=== PATIENT | female | born 1945 | race Caucasian/White ===

== ENCOUNTER 2021-11-13 14:55 | Inpatient (IN) | payer MEDICARE, OTHER ==
[~2021-11-13 14:55] MED LIST: Iopamidol-370 76% 500 ML 1 ML ONE
[2021-11-13 15:25] LABS: #Lymphocytes 1.7 thou/uL (1.20-3.40); #Monocytes 0.9 thou/uL (0.11-0.59); #Neutrophils 11.5 thou/uL (1.40-6.50); %Basophils 0.1 % (0.0-1.0); %Eosinophils 0.1 % (0.0-10.0); %Lymphocytes 12.2 % (21.0-51.0); %Monocytes 6.3 % (0.0-10.0); %Neutrophils 81.3 % (42.0-75.0); Hemoglobin 14.4 g/dL (12.0-16.0); Mean Corpuscular HGB CONC 33.5 g/dL (32.0-36.0); Mean Corpuscular Hemoglobin 29.6 pg (27.0-31.0); Mean Corpuscular Volume 88.4 fL (78.0-98.0); Mean Platelet Volume 7.5 fL (7.4-10.4); Platelet Count 310 thou/uL (130-400); RBC Distribution Width 12.3 % (11.5-14.5); Red Blood Cell (RBC) Count 4.88 mill/uL (4.20-5.40); White Blood Cell (WBC) Count 14.1 thou/uL (4.8-10.8)
[2021-11-13 16:01] LABS: ALT (SGPT) 29 U/L (8-55); AST (SGOT) 47 U/L (5-34); Albumin 4.6 g/dL (3.4-4.8); Alkaline Phosphatase 164 U/L (40-110); Anion Gap 23 mmol/L (10-20); BUN (Urea Nitrogen) 41 mg/dL (9.8-20.1); Bilirubin, Total 1.1 mg/dL (0.2-1.2); Calc. Creatinine Clearance 0 mL/min (70-130); Calcium 9.6 mg/dL (7.8-10.44); Carbon Dioxide 18 mmol/L (23-31); Chloride 99 mmol/L (98-107); Estimated GFR 33; Globulin 3.9 g/dL (2.4-3.5); Glucose 131 mg/dL (83-110); Lipase 8 U/L (8-78); Potassium 4.7 mmol/L (3.5-5.1); Protein, Total 8.5 g/dL (5.8-8.1); Sodium 135 mmol/L (136-145)
[2021-11-13 16:13] LABS: Bilirubin Negative (Negative); Blood, Urine 1+ (Negative); Clarity Turbid (Clear); Glucose, Urine (Dipstick) Normal (Negative); Ketone, Urine Negative (Negative); Leukocyte 250 Leu/uL (Negative); Nitrite 2+ (Negative); Protein, Urine (Dipstick) 100 mg/dL (Neg-Trace); Specific Gravity, Urine 1.017 (1.002-1.036); Squamous Epithelial 0-3 HPF (0-3); Urobilinogen Normal mg/dL (Less than 2); WBC/HPF 21-50 HPF (0-3); pH, Urine 5.5 (5.0-9.0)
[2021-11-13 16:14] LABS: Bacteria/HPF 1+ HPF (None Seen)
[2021-11-13] MEDS ORDERED: Ondansetron PF 4 MG/2 ML Vial ONE (16:27)
[2021-11-13] MEDS ORDERED: Morphine 4 MG/ML VIAL ONE ×2 (16:27→19:01)
[2021-11-13] MEDS ORDERED: Vancomycin 1 GM/200 ML BAG ONE (16:27)
[2021-11-13] MEDS ORDERED: Cefepime 2 GM VIAL ONE (16:27)
[2021-11-13] MEDS ORDERED: Acetaminophen 500 MG TAB ONE (16:41)
[2021-11-13] MEDS ORDERED: Ondansetron ODT 4 MG TAB PO PRN (18:44)
[2021-11-13] MEDS ORDERED: Bisacodyl 5 MG TAB PO PRN (18:44)
[2021-11-13] MEDS ORDERED: Senokot S 8.6-50 MG TAB PO PRN (18:44)
[2021-11-13] MEDS ORDERED: Acetaminophen 325 MG TAB PO PRN (18:44)
[2021-11-13] MEDS ORDERED: Acetaminophen 650 MG Suppository PR PRN (18:44)
[2021-11-13] MEDS ORDERED: diphenhydrAMINE 25 MG CAP PO SCH (19:00)
[2021-11-13 19:02] LABS: Lactic Acid 1.2 mmol/L (0.5-2.2)
[2021-11-13 20:20] VITALS: BMI 23.9
[2021-11-13] MEDS: Sodium Chloride 0.9% 1,000 ML IV SCH (21:32)
[2021-11-13] MEDS ORDERED: Cefepime 2 GM in Sodium Chloride 0.9% 100 ML IVPB SCH (22:00)
[2021-11-14] MEDS ORDERED: Chloraseptic Spray 180 ml Bottle PO PRN (01:42)
[2021-11-14] MEDS: HYDROcodone/Acetaminophen 5/325 mg Tablet PO PRN ×4 (03:12→23:50)
[2021-11-14] MEDS: Sodium Chloride 0.9% 1,000 ML IV SCH ×4 (03:21→22:17)
[2021-11-14] MEDS ORDERED: Cefepime 1 GM in Sodium Chloride 0.9% 100 ML IVPB SCH (04:00)
[2021-11-14 04:49] LABS: Troponin I 0.015 ng/mL (< 0.028)
[2021-11-14 04:55] LABS: ALT (SGPT) 27 U/L (8-55); AST (SGOT) 42 U/L (5-34); Albumin 3.2 g/dL (3.4-4.8); Alkaline Phosphatase 125 U/L (40-110); Anion Gap 13 mmol/L (10-20); BUN (Urea Nitrogen) 33 mg/dL (9.8-20.1); Bilirubin, Total 0.5 mg/dL (0.2-1.2); Calc. Creatinine Clearance 40 mL/min (70-130); Calcium 8.3 mg/dL (7.8-10.44); Carbon Dioxide 22 mmol/L (23-31); Chloride 106 mmol/L (98-107); Estimated GFR 43; Globulin 2.6 g/dL (2.4-3.5); Glucose 150 mg/dL (83-110); Potassium 3.3 mmol/L (3.5-5.1); Protein, Total 5.8 g/dL (5.8-8.1); Sodium 138 mmol/L (136-145)
[2021-11-14] MEDS: Enoxaparin Sodium 30 MG/0.3 ML SYRINGE SC SCH (08:20)
[2021-11-14] MEDS ORDERED: Potassium Chloride 20 MEQ TAB PO SCH (09:45)
[2021-11-14] MEDS: cefTRIAXone\\ROCEPHIN 1 GM in Sodium Chloride 0.9% 100 ML IVPB SCH (10:20)
[2021-11-14 10:53] LABS: #Eosinphils 0.2 thou/uL (0.0-0.7); #Lymphocytes 1.1 thou/uL (1.20-3.40); #Monocytes 0.4 thou/uL (0.11-0.59); #Neutrophils 5.7 thou/uL (1.40-6.50); %Basophils 0.1 % (0.0-1.0); %Eosinophils 2.1 % (0.0-10.0); %Lymphocytes 14.7 % (21.0-51.0); %Monocytes 5.8 % (0.0-10.0); %Neutrophils 77.3 % (42.0-75.0); Hemoglobin 12.3 g/dL (12.0-16.0); Mean Corpuscular Hemoglobin 28.9 pg (27.0-31.0); Mean Corpuscular Volume 90.3 fL (78.0-98.0); Mean Platelet Volume 7.5 fL (7.4-10.4); Platelet Count 222 thou/uL (130-400); Red Blood Cell (RBC) Count 4.27 mill/uL (4.20-5.40); White Blood Cell (WBC) Count 7.4 thou/uL (4.8-10.8)
[2021-11-14] MEDS: Ondansetron PF 4 MG/2 ML Vial IVP PRN (16:52)
[2021-11-14] MEDS: diphenhydrAMINE 12.5 MG/5 ML UDCUP PO PRN ×2 (16:55→23:55)
[2021-11-14] MEDS ORDERED: Vancomycin HCl 1 GM in Sodium Chloride 0.9% 250 ML 300 ML IVPB SCH (17:00)
[2021-11-15 04:16] LABS: #Basophils 0.1 thou/uL (0.0-0.2); #Eosinphils 0.3 thou/uL (0.0-0.7); #Lymphocytes 1.7 thou/uL (1.20-3.40); #Monocytes 0.4 thou/uL (0.11-0.59); %Basophils 0.7 % (0.0-1.0); %Eosinophils 3.3 % (0.0-10.0); %Monocytes 5.1 % (0.0-10.0); %Neutrophils 70.9 % (42.0-75.0); Hemoglobin 11.5 g/dL (12.0-16.0); Mean Corpuscular HGB CONC 32.8 g/dL (32.0-36.0); Mean Corpuscular Hemoglobin 29.5 pg (27.0-31.0); Mean Corpuscular Volume 90.1 fL (78.0-98.0); Mean Platelet Volume 7.7 fL (7.4-10.4); Platelet Count 236 thou/uL (130-400); RBC Distribution Width 12.2 % (11.5-14.5); White Blood Cell (WBC) Count 8.5 thou/uL (4.8-10.8)
[2021-11-15 04:39] LABS: Anion Gap 13 mmol/L (10-20); BUN (Urea Nitrogen) 28 mg/dL (9.8-20.1); Calc. Creatinine Clearance 50 mL/min (70-130); Calcium 8.5 mg/dL (7.8-10.44); Carbon Dioxide 21 mmol/L (23-31); Chloride 111 mmol/L (98-107); Estimated GFR 56; Glucose 131 mg/dL (83-110); Potassium 3.8 mmol/L (3.5-5.1); Sodium 141 mmol/L (136-145)
[2021-11-15] MEDS: HYDROcodone/Acetaminophen 5/325 mg Tablet PO PRN ×4 (05:08→21:20)
[2021-11-15] MEDS: Sodium Chloride 0.9% 1,000 ML IV SCH ×3 (05:08→13:43)
[2021-11-15] MEDS ORDERED: Non-Formulary Item 1 EACH (Cholecalciferol (Vitamin D3) [Vitamin D] 1000 UNIT Capsule) PO SCH (09:00)
[2021-11-15] MEDS ORDERED: Buprenorphine Hcl [Belbuca] 600 MCG Film SL SCH (09:00)
[2021-11-15] MEDS ORDERED: tiZANidine HCl 4 MG TAB PO SCH (09:00)
[2021-11-15] MEDS ORDERED: BUPRENORPHINE HCL 600 MCG SL SCH (09:00)
[2021-11-15] MEDS: tiZANidine HCl 4 MG TAB PO SCH (09:39)
[2021-11-15] MEDS: cefTRIAXone\\ROCEPHIN 1 GM in Sodium Chloride 0.9% 100 ML IVPB SCH (09:39)
[2021-11-15] MEDS: Cholecalciferol 1,000 UNITS (25 MCG) TAB PO SCH (09:39)
[2021-11-15] MEDS: Enoxaparin Sodium 30 MG/0.3 ML SYRINGE SC SCH (09:39)
[2021-11-15] MEDS: Ferrous Sulfate 325 MG TAB PO SCH ×2 (09:39→21:20)
[2021-11-15] MEDS ORDERED: diphenhydrAMINE 12.5 MG/5 ML UDCUP PO SCH (10:00)
[2021-11-15] MEDS: diphenhydrAMINE 12.5 MG/5 ML UDCUP PO SCH ×2 (13:33→21:20)
[2021-11-15] MEDS ORDERED: Non-Formulary Item 1 EACH (Pregabalin [Lyrica] 150 MG Capsule) PO SCH (21:00)
[2021-11-15] MEDS: Pregabalin 75 MG CAP PO SCH (21:19)
[2021-11-16] MEDS: Sodium Chloride 0.9% 1,000 ML IV SCH ×2 (02:26→16:55)
[2021-11-16] MEDS ORDERED: Calamine/Zinc Oxide 177 ML LOTION TP SCH (03:00)
[2021-11-16 04:06] LABS: #Eosinphils 0.4 thou/uL (0.0-0.7); #Monocytes 0.4 thou/uL (0.11-0.59); #Neutrophils 6.6 thou/uL (1.40-6.50); %Basophils 0.1 % (0.0-1.0); %Eosinophils 3.4 % (0.0-10.0); %Lymphocytes 28.5 % (21.0-51.0); %Monocytes 4.3 % (0.0-10.0); %Neutrophils 63.7 % (42.0-75.0); Hemoglobin 10.7 g/dL (12.0-16.0); Mean Corpuscular HGB CONC 32.6 g/dL (32.0-36.0); Mean Corpuscular Hemoglobin 28.8 pg (27.0-31.0); Mean Corpuscular Volume 88.4 fL (78.0-98.0); Mean Platelet Volume 7.3 fL (7.4-10.4); Platelet Count 241 thou/uL (130-400); RBC Distribution Width 12.2 % (11.5-14.5); Red Blood Cell (RBC) Count 3.73 mill/uL (4.20-5.40); White Blood Cell (WBC) Count 10.4 thou/uL (4.8-10.8)
[2021-11-16 04:24] LABS: Anion Gap 9 mmol/L (10-20); BUN (Urea Nitrogen) 21 mg/dL (9.8-20.1); Calc. Creatinine Clearance 57 mL/min (70-130); Calcium 8.4 mg/dL (7.8-10.44); Carbon Dioxide 23 mmol/L (23-31); Chloride 112 mmol/L (98-107); Estimated GFR 67; Glucose 106 mg/dL (83-110); Potassium 3.3 mmol/L (3.5-5.1); Sodium 141 mmol/L (136-145)
[2021-11-16] MEDS: HYDROcodone/Acetaminophen 5/325 mg Tablet PO PRN ×3 (04:50→21:58)
[2021-11-16] MEDS: diphenhydrAMINE 12.5 MG/5 ML UDCUP PO SCH ×3 (06:29→21:58)
[2021-11-16] MEDS: Cholecalciferol 1,000 UNITS (25 MCG) TAB PO SCH (08:35)
[2021-11-16] MEDS: Enoxaparin Sodium 30 MG/0.3 ML SYRINGE SC SCH (08:35)
[2021-11-16] MEDS: tiZANidine HCl 4 MG TAB PO SCH (08:35)
[2021-11-16] MEDS: Ferrous Sulfate 325 MG TAB PO SCH ×2 (08:35→21:57)
[2021-11-16] MEDS: cefTRIAXone\\ROCEPHIN 1 GM in Sodium Chloride 0.9% 100 ML IVPB SCH (08:37)
[2021-11-16] MEDS: Calamine/Zinc Oxide 177 ML LOTION TP SCH ×2 (09:12→22:00)
[2021-11-16] MEDS: Ondansetron PF 4 MG/2 ML Vial IVP PRN (16:54)
[2021-11-16] MEDS: Pregabalin 75 MG CAP PO SCH (21:56)
[2021-11-17 04:25] LABS: #Eosinphils 0.2 thou/uL (0.0-0.7); #Monocytes 0.5 thou/uL (0.11-0.59); #Neutrophils 6.5 thou/uL (1.40-6.50); %Basophils 0.1 % (0.0-1.0); %Eosinophils 1.7 % (0.0-10.0); %Lymphocytes 29.4 % (21.0-51.0); %Monocytes 4.7 % (0.0-10.0); Hemoglobin 10.1 g/dL (12.0-16.0); Mean Corpuscular HGB CONC 33.1 g/dL (32.0-36.0); Mean Corpuscular Volume 87.7 fL (78.0-98.0); Mean Platelet Volume 7.4 fL (7.4-10.4); Platelet Count 241 thou/uL (130-400); RBC Distribution Width 12.3 % (11.5-14.5); Red Blood Cell (RBC) Count 3.47 mill/uL (4.20-5.40); White Blood Cell (WBC) Count 10.1 thou/uL (4.8-10.8)
[2021-11-17 04:42] LABS: Anion Gap 11 mmol/L (10-20); BUN (Urea Nitrogen) 13 mg/dL (9.8-20.1); Calc. Creatinine Clearance 65 mL/min (70-130); Calcium 8.4 mg/dL (7.8-10.44); Carbon Dioxide 22 mmol/L (23-31); Chloride 111 mmol/L (98-107); Estimated GFR 78; Glucose 113 mg/dL (83-110); Sodium 141 mmol/L (136-145)
[2021-11-17] MEDS: diphenhydrAMINE 12.5 MG/5 ML UDCUP PO SCH ×2 (06:15→13:22)
[2021-11-17] MEDS: Sodium Chloride 0.9% 1,000 ML IV SCH (06:15)
[2021-11-17] MEDS: HYDROcodone/Acetaminophen 5/325 mg Tablet PO PRN (06:22)
[2021-11-17] MEDS: Enoxaparin Sodium 30 MG/0.3 ML SYRINGE SC SCH (09:13)
[2021-11-17] MEDS: Ferrous Sulfate 325 MG TAB PO SCH (09:14)
[2021-11-17] MEDS: tiZANidine HCl 4 MG TAB PO SCH (09:14)
[2021-11-17] MEDS: Cholecalciferol 1,000 UNITS (25 MCG) TAB PO SCH (09:14)
[2021-11-17] MEDS: cefTRIAXone\\ROCEPHIN 1 GM in Sodium Chloride 0.9% 100 ML IVPB SCH (09:16)
[2021-11-17] MEDS: Calamine/Zinc Oxide 177 ML LOTION TP SCH (09:23)
[2021-11-17] MEDS ORDERED: Potassium Chloride 20 MEQ TAB PO SCH (13:00)
[2021-11-17 13:08] VITALS: BP 132/65; TEMP 98.2
== END 2021-11-17 15:32 | disposition home health service (06) | DRG 871 ==
LOC: ERS 14:55 → 2NO 18:05
PROVIDERS: ADMIT Internal Medicine; ATTEND Internal Medicine
PROC: 3E05329 Introduction of Other Anti-infective into Peripheral Artery, Percutaneous Approach (ICD-10-PCS; principal; 2021-11-13)
PROC: 8E0ZXY6 Isolation (ICD-10-PCS; 2021-11-13)
DX: A41.51 Sepsis due to Escherichia coli [E. coli] (principal); J12.82 Pneumonia due to coronavirus disease 2019; U07.1 COVID-19; N17.9 Acute kidney failure, unspecified; M17.9 Osteoarthritis of knee, unspecified; M79.7 Fibromyalgia; R65.20 Severe sepsis without septic shock; I10 Essential (primary) hypertension; E78.5 Hyperlipidemia, unspecified; E87.6 Hypokalemia; N81.10 Cystocele, unspecified; K63.5 Polyp of colon; Z98.890 Other specified postprocedural states; Z90.12 Acquired absence of left breast and nipple; Z82.3 Family history of stroke; Z82.49 Family history of ischemic heart disease and other diseases of the circulatory system; Z87.440 Personal history of urinary (tract) infections; Z90.49 Acquired absence of other specified parts of digestive tract; Z88.2 Allergy status to sulfonamides; Z88.8 Allergy status to other drugs, medicaments and biological substances; Z79.899 Other long term (current) drug therapy; Z88.1 Allergy status to other antibiotic agents
CPT/HCPCS: 36415; 71045; 74177; 80048; 80053; 81003; 81015; 83605; 83690; 84484; 85025; 87040; 87077; 87086; 87186; 93005; 96365; 96367; 96375; 96376; J0692; J0696; J1650; J2270; J2405; J3370; J3490; J7050; Q0163; Q9967; U0003; U0005